=== PATIENT | female | born 1965 | race Caucasian/White ===

== ENCOUNTER 2016-10-16 09:41 | Inpatient (IN) | payer OTHER ==
[~2016-10-16] VITALS: Ht 162.6 cm; Wt 87.5 kg
--- NOTE | 2016-10-16 09:51 | NUR ---
WHEELCHAIR TO ER ROOM 13, TO BED
[2016-10-16] MEDS ORDERED: PROTONIX40 M2 PO (10:32)
[2016-10-16] MEDS ORDERED: BUDEPRION150 MG PO (10:36)
[2016-10-16 11:04] LABS: HEMATOCRIT 38.6 % (37.0-47.0); HEMOGLOBIN 13.2 g/dl (12.0-16.0); IMMATURE GRANULOCYTES 0.5 % (0.0-1.0); MEAN CELL VOLUME 83.9 fL CALC (80.0-100.0); MEAN CORPUSCULAR HGB 28.7 pG CALC (26.0-32.0); MEAN CORPUSCULAR HGB CONC 34.2 g/L CALC (32.0-36.0); NEUT# 11.44 thou/uL (2.00-7.15); RED BLOOD COUNT 4.6 mill/uL (4.20-5.60); RED CELL DISTRI WIDTH 13.7 % (11.5-15.5)
[2016-10-16 11:07] LABS: URINE BILIRUBIN - DIPSTICK NEGATIVE (NEGATIVE); URINE BLOOD DIPSTICK LARGE (NEGATIVE); URINE COLOR YELLOW; URINE GLUCOSE - DIPSTICK NEGATIVE (NEGATIVE); URINE KETONE NEGATIVE (NEGATIVE); URINE LEUK ESTERASE TRACE (Negative); URINE NITRITE - DIPSTICK POSITIVE (Negative); URINE PH 5.5 (4.5-8.0); URINE PROTEIN - DIPSTICK 30 mg/dL (NEG-TRACE); URINE SPECIFIC GRAVITY >=1.030; URINE UROBILINOGEN - DIPSTICK 0.2 E.U./dL (0.2)
--- NOTE | 2016-10-16 11:08 | NUR ---
TEMP RECHECK 102.0. MD NOTIFIED. PT MEDICATED WITH 1 GRAM OF TYLENOL PER MD VERBAL ORDER.
[2016-10-16 11:10] LABS: ALBUMIN 4.4 g/dL (3.2-5.0); ALKALINE PHOSPHATASE 148 u/l (38-126); ANION GAP 17 (6-22 (CALC)); BILIRUBIN, TOTAL 1.5 mg/dL (0.0-1.4); BUN 13 mg/dL (7-17); BUN/CREATININE RATIO 17 (12-20 (CALC)); CALCIUM 9.7 mg/dL (8.4-10.2); CARBON DIOXIDE 24 mmol/l (22-30); CHLORIDE 105 mmol/l (95-108); CREATININE 0.7 mg/dL (0.5-1.0); GFR > 60 ML/MIN (>=60 (CALC)); GFR FOR AFR.AMER. > 60 ML/MIN (>=60 (CALC)); GLUCOSE 92 mg/dL (65-105); LIPASE 76 u/l (23-300); POTASSIUM 3.7 mmol/l (3.5-5.1); SGOT/AST 32 u/l (14-36); SGPT/ALT 47 u/l (9-52); SODIUM 143 mmol/l (137-146); TOTAL PROTEIN 7.9 g/dL (6.3-8.2); URINE CLARITY CLOUDY
[2016-10-16 11:15] LABS: URINE BACTERIA MODERATE hpf; URINE RBC TNTC RBC/hpf (0-5); URINE SQUAMOUS EPITHELIAL CELL FEW EPI/hpf (0-FEW)
[2016-10-16 11:19] LABS: PROTHROMBIN TIME 10.7 SECONDS (9.0-12.5)
--- NOTE | 2016-10-16 12:15 | NUR ---
IV FLUIDS CONTINUE. PT BP LOW. MD AWARE. PT SUPINE. IV SITE HEALTHY. PT A&OX3.
--- NOTE | 2016-10-16 13:36 | NUR ---
ATTEMPT TO CALL REPORT NURSE UNAVAILABLE AT THIS TIME.
--- NOTE | 2016-10-16 14:25 | NUR ---
REPORT PROVIDED TO MISTI NURSE, ON [facility]. AFEBRILE AT 99.3, IV FLUIDS AND IV ABT CONTINUES.
--- NOTE | 2016-10-16 14:44 | NUR ---
PT TO MEDSURG ON TELEMETRY AFTER USING BSC. VSS. IV FLUIDS INFUSING SITE HEALTHY.
--- NOTE | 2016-10-16 14:55 | NUR ---
FROM ER VIA STRETCHER ACCOMPANIED BY FAMILY MEMBER AND MARISOL RN. AMBULATES TO BED WITH STEADY GAIT. RESPS EVEN AND UNLABORED ON ROOM AIR, TELE MONITOR APPLIED. #20 LAC INFUSING WITHOUT DIFFICULTY, SITE APPEARS HEALTHY. DENIES PAIN OR DISCOMFORT. ORIENTED TO ROOM AND CALL SYSTEM. SAFETY PRECAUTIONS REINFORCED. BED IN LOWEST POSITION WITH WHEELS LOCKED. CALL LIGHT WITHIN REACH. ENCOURAGED PT AND FAMILY TO CALL FOR ANY NEEDS.
[2016-10-16 15:14] VITALS: BP 97/58
--- NOTE | 2016-10-16 15:30 | NUR ---
DR GHOSH IN TO SEE PT, NEW ORDERS RECEIVED.
--- NOTE | 2016-10-16 16:50 | NUR ---
MEDICATED WITH TORADOL 15MG IVP FOR C/O 610 RIGHT FLANK PAIN. WILL CONTINUE TO MONITOR.
[2016-10-16 19:40] VITALS: BP 90/58
--- NOTE | 2016-10-16 20:51 | NUR ---
PT. RESTING IN BED WITH NO DISTRESS NOTED. SON IS IN AT BEDSIDE. ASSESSMENT COMPLETED. PT. C/O BANGURA, MEDICATED WITH ORDERED TYLENOL, WILL REASSESS. PO FLUIDS OFFERED. IV SITE PATENT AND SCHED IVF INFUSING. UPDATED WITH POC. CALL LIGHT IS IN REACH. WILL CONITNUE TO MONITOR.
[2016-10-17] VITALS (7 sets, daily range): BP systolic 92–112; BP diastolic 54–76
--- NOTE | 2016-10-17 00:05 | NUR ---
PT. RESTING IN BED WITH NO DISTRESS NOTED. DENIES NEEDS/PAIN. COMMODE EMPTIED OF 300 ML OF DARK YELLOW URINE. PO FLUIDS OFFERED. CALL LIGHT IS IN REACH. WILL CONTINUE TO MONITOR.
--- NOTE | 2016-10-17 04:03 | NUR ---
PT. C/O BANGURA 10/27, MEDICATED WITH ORDERED PRN TYLENOL AND ICE PACK GIVEN. PO FLUIDS OFFERED. VSS. NO DISTRESS NOTED. DENIES FURTHER NEEDS. CALL LIGHT IS IN REACH.
[2016-10-17 04:47] LABS: HEMATOCRIT 31.9 % (37.0-47.0); HEMOGLOBIN 10.7 g/dl (12.0-16.0); IMMATURE GRANULOCYTES 0.3 % (0.0-1.0); MEAN CELL VOLUME 86.4 fL CALC (80.0-100.0); MEAN CORPUSCULAR HGB CONC 33.5 g/L CALC (32.0-36.0); NEUT# 5.27 thou/uL (2.00-7.15); RED BLOOD COUNT 3.69 mill/uL (4.20-5.60); RED CELL DISTRI WIDTH 13.9 % (11.5-15.5)
[2016-10-17 05:09] LABS: ANION GAP 13 (6-22 (CALC)); BUN 8 mg/dL (7-17); BUN/CREATININE RATIO 12 (12-20 (CALC)); CALCIUM 8.3 mg/dL (8.4-10.2); CARBON DIOXIDE 22 mmol/l (22-30); CHLORIDE 110 mmol/l (95-108); CREATININE 0.7 mg/dL (0.5-1.0); GFR > 60 ML/MIN (>=60 (CALC)); GFR FOR AFR.AMER. > 60 ML/MIN (>=60 (CALC)); GLUCOSE 99 mg/dL (65-105); POTASSIUM 3.6 mmol/l (3.5-5.1); SODIUM 141 mmol/l (137-146)
--- NOTE | 2016-10-17 07:00 | NUR ---
RECEIVED BEDSIDE REPORT FROM JOLANTA ELENA. RESTING IN BED WITH EYES CLOSED, AWAKENS EASILY. FAMILY AT BEDSIDE. RESPS EVEN AND UNLABORED ON ROOM AIR, TELE MONITOR IN PLACE. #20 LAC INFUSING WITHOUT DIFFICULTY, SITE APPEARS HEALTHY. DENIES PAIN OR DISCOMFORT. PLAN OF CARE DISCUSSED. SAFETY PRECAUTIONS REINFORCED. CALL LIGHT WITHIN REACH. ENCOURAGED PT TO CALL FOR ANY NEEDS.
--- NOTE | 2016-10-17 12:00 | NUR ---
RESTING IN BED WATCHING TV. RESPS EVEN AND UNLABORED ON ROOM AIR, TELE MONITOR IN PLACE. FAMILY MEMBER AT BEDSIDE. VOICES NO NEEDS AT THIS TIME #20 LAC INFUSING WITHOUT DIFFICULTY, SITE APPEARS HEALTHY. CALL LIGHT WITHIN REACH. ENCOURAGED PT TO CALL FOR ANY NEEDS.
--- NOTE | 2016-10-17 13:20 | NUR ---
DR GHOSH IN TO SEE PT, NEW ORDERS RECEIVED.
--- NOTE | 2016-10-17 14:10 | NUR ---
AMBULATING IN HALLWAY WITH STEADY GAIT ACCOMPANIED BY FAMILY MEMBER.
--- NOTE | 2016-10-17 15:00 | NUR ---
RESTING IN BED IN HIGH FOWLERS. RESPS EVEN AND UNLABORED ON ROOM AIR, TELE MONITOR IN PLACE. C/O 5/10 RIGHT FLANK, MEDICATED WITH TORADOL 15MG IVP FOR RELIEF. FAMILY AT BEDSIDE. PRUNE JUICE PO GIVEN FOR C/O CONSTIPATION. WILL CONTINUE TO MONITOR. CALL LIGHT WITHIN REACH.
--- NOTE | 2016-10-17 18:38 | NUR ---
MIRALAX PO GIVEN FOR C/O CONSTIPATION.
--- NOTE | 2016-10-17 19:34 | NUR ---
PT. SITTING UP IN BED WITH NO DISTRESS NOTED.JUST GOT DONE WITH AMBULATING IN HALLS. DENIES PAIN. ASSESSMENT COMPLETED. IV SITE PATENT TO LAC AND INFUSING ORDERED NS @100MLS/HR. PT. REPORTS STILL NO BM, WILL PROVIDE WITH MORE WARM PRUNE JUICE PER PTS REQUEST. BS ACTIVE. CALL LIGHT IS IN REACH. WILL CONTINUE TO MONITOR.
--- NOTE | 2016-10-17 21:01 | NUR ---
PT. C/O GAS TO BILATERAL SIDES AND RIGHT SIDED BACK PAIN, WILL MEDICATE WITH ORDERED TYLENOL AND SUPPLY WITH WARM PACKS. PT. ALSO NOTED WITH DRY NON-PRODUCTIVE COUGH. WILL CONTINUE TO MONITOR.
--- NOTE | 2016-10-17 23:05 | NUR ---
PT. C/O RIGHT SIDED BACK PAIN 10/27, MEDICATED WITH ORDERED TORADOL,AND WARM PACK APPPLIED. PO FLUIDS OFFERED. IV SITE PATENT. ENCOURAGED TO CALL FOR ANY NEEDS.
[2016-10-18 04:34] VITALS: BP 91/56
--- NOTE | 2016-10-18 04:36 | NUR ---
PT. RESTING IN BED, AWAKENED AT THIS TIME FOR AM VS. VSS. NO DISTRESS NOTED. DENIES NEEDS. CALL LIGHT IS IN REACH.
--- NOTE | 2016-10-18 06:00 | NUR ---
PT. RESTING IN BED ON LEFT SIDE WITH EYES CLOSED. NO DISTRESS NOTED. CALL LIGHT IS IN REACH. WILL CONTINUE TO MONTIOR.
--- NOTE | 2016-10-18 07:15 | NUR ---
BEDSIDE REPORT RECEIVED FROM ULICES STOVER. PT SITTING UPRIGHT IN BED. DENIES PAIN. REPORTING OF CONCERNS ENCOURAGED. PLAN OF CARE DISCUSSED. PT STATES ANTICIPATION OF DISCHARGE. DISCHARGE PROCESS REVIEWED. PT STATES UNDERSTANDING.
[2016-10-18 09:08] VITALS: BP 113/72
[2016-10-18 11:14] VITALS: BP 106/70
[2016-10-18] MEDS ORDERED: LEVAQUIN750 MG PO (13:51)
--- NOTE | 2016-10-18 14:22 | NUR ---
Discharge instructions given. Patient verbalizes understanding of same. Discharged in stable condition via Ambulatory to Home with family. All belongings sent with pt.
== END 2016-10-18 14:25 | disposition home or self-care (01) | DRG 690 ==
LOC: ENPENDDIS → ED 09:41 → ED-I 13:05 → ED 13:16 → MS2 13:17
PROVIDERS: Emergency Medicine; ADMIT Internal Medicine; ATTEND Internal Medicine
DX: N10 Acute pyelonephritis (principal); F32.9 Major depressive disorder, single episode, unspecified; K21.9 Gastro-esophageal reflux disease without esophagitis; F41.9 Anxiety disorder, unspecified; B96.20 Unspecified Escherichia coli [E. coli] as the cause of diseases classified elsewhere
CPT/HCPCS: J0692; J1650